=== PATIENT | female | born 1970 | race Caucasian/White ===

== ENCOUNTER 2023-11-21 08:10 | Outpatient (CLI) | payer OTHER ==
[2023-11-21 08:20] LABS: BASOPHILS % (AUTO) 0.3 %; EOSINOPHILS # (AUTO) 0.2 10^3/uL (0.0-0.7); HCT - HEMATOCRIT 32.8 % (37.0-47.0); HGB - HEMOGLOBIN 9.8 g/dL (12.0-16.0); LYMPHOCYTES # (AUTO) 1.4 10^3/uL (1.5-3.5); MEAN CORPUSCULAR HGB CONC 29.9 g/dL (32.0-36.0); MEAN CORPUSCULAR VOLUME 73.5 fL (81.0-99.0); MEAN PLATELET VOLUME 9.6 fL (7.9-10.8); MONOCYTES # (AUTO) 0.6 10^3/uL (0.0-1.0); NEUTROPHILS # (AUTO) 4.2 10^3/uL (1.5-6.6); NEUTROPHILS % (AUTO) 65.4 %; PLT - PLATELET COUNT 227 10^3/uL (130-450); RED BLOOD COUNT 4.46 10^6/uL (4.20-5.40); RED CELL DISTRIBUTION WIDTH 14.5 % (12.0-15.0); WHITE BLOOD COUNT 6.4 x10^3/uL (4.8-10.8)
[2023-11-21 08:35] LABS: ALBUMIN 4.4 g/dL (3.2-5.5); ALBUMIN/GLOBULIN RATIO 1.8 (1.0-2.2); ALKALINE PHOSPHATASE 48 IU/L (42-121); ALT ALANINE AMINOTRANSFERASE 9 IU/L (10-60); AST ASPARTATE AMINOTRANSFERASE 10 IU/L (10-42); BILIRUBIN,TOTAL 0.6 mg/dL (0.2-1.0); BUN - BLOOD UREA NITROGEN 21 mg/dL (6-20); CALCIUM 9.5 mg/dL (8.5-10.3); CARBON DIOXIDE - CO2 29 mmol/L (21-32); CHLORIDE 106 mmol/L (101-111); CHOL/HDL RATIO 3.8 (<4.4); CHOLESTEROL 151 mg/dL; CREATININE 0.6 mg/dL (0.6-1.3); GFR - MDRD 104 (>89); GLUCOSE 95 mg/dL (74-104); HDL CHOLESTEROL 40 mg/dL; LDL CHOLESTEROL,CALCULATED 88 mg/dL; LDL/HDL RATIO 2.2 (<4.4); POTASSIUM 4.5 mmol/L (3.5-4.5); SODIUM 138 mmol/L (135-145); TOTAL PROTEIN 6.9 g/dL (6.4-8.9); TRIGLYCERIDES 115 mg/dL; VLDL CHOLESTEROL 23 mg/dL
[2023-11-21 08:51] LABS: THYROID STIMULATING HORMONE 1.51 uIU/mL (0.34-5.60)
== END 2023-11-21 08:11 | disposition home or self-care (01) ==
LOC: LAB 08:10
PROVIDERS: ATTEND Nurse Practitioner Family
DX: G47.39 Other sleep apnea (principal); M17.0 Bilateral primary osteoarthritis of knee; E78.5 Hyperlipidemia, unspecified; E55.9 Vitamin D deficiency, unspecified; G47.00 Insomnia, unspecified
CPT/HCPCS: 36415; 80053; 80061; 82306; 83721; 84443; 85025

== ENCOUNTER 2024-01-19 15:56 | Outpatient (CLI) | payer OTHER ==
--- NOTE | 2024-01-19 16:27 | Sleep Patient Instructions ---
Sleep Center Visit Summary - Patient Visit Information Reason for Visit: Initial consultation - Patient Instructions Additional Instructions: You will continue with CPAP therapy with pressure set at 7-15 cmH2O. A supply prescription will be updated with your DME supplier. I have added an order to update your PAP machine. Please call the office to schedule a compliance follow up once you get your new device. Please follow up with the sleep care office one month after obtaining new device. - Clinic Information Contact: [facility] [address] [place] [address] [email or web address] T: [phone]
--- NOTE | 2024-01-19 16:32 | SLEEP CARE CONSULTATION ---
Information from patient questionnaire entered by Uli Real. I have reviewed and concur with the information entered by Uli Real. This document represents the service I personally performed and the decisions made by me, Keturah Irizarry ARNP. History of Present Illness Service Date and Time: 01/19/2024 1556 Reason for Visit: New patient, Previously diagnosed sleep apnea, sleep apnea on CPAP therapy Date of Onset: WHOLE LIFE Usual bedtime: 9934-8778 Time it takes to fall asleep: 10-20MINS Snores at night: Yes Observed to quit breathing while asleep: No Number of times waking at night: 3-4 Toss, Turn, or Twitch while sleeping: Yes Recalls having dreams: Yes Usually gets out of bed at: 0600 Feels refreshed in the morning: No Sleepy or fatigued during the day: Yes Ever fallen asleep while driving: No Takes day naps: No Year and Where: 2015 [facility] Additional HPI information: TRESSA COLE was previously diagnosed to have very severe, AHI 87.7, obstructive sleep apnea-hypopnea syndrome as seen in sleep study dated 04/08/2016 through [facility] in [place], [place] and comes in today for CPAP therapy. - Parasomnia Symptoms Ever been unable to move upon waking from sleep: No Walks in sleep: No Talks in sleep: No Ever acted out dreams in sleep: No Ever felt weak in the knees when startled or emotional: No Bothered by creepy, crawly, restless sensations in legs: No Problems with memory or concentration: Yes CPAP Compliance Data - Data Reviewed with Patient Average duration of nightly device use: 7 hours 54 minutes Compliance rate %: 100 (30/30 days used) Current pressure setting (cmH2O): 7-15 Humidity settin Heated hose settin Average residual AHI: 2 Central apnea: 0.1 Obstructive apnea: 0.2 Hypopnea: 1.7 Average large leak: 1 mins 26 secs Compliance data discussion: She has a Dreamstation that was re-certified and she says it was last replace about 5 years ago. She gets her supplies from [facility]. She says the humidifier is not working on the machine. She is using a full face mask, ResMed AirTouch F20. Subjective Patient concerns: reports: dry mouth, nose, throat, other (sore in nose that will bleed). denies: aerophagia, mask discomfort, air blowing in eyes, mask leak noise, condensation in mask/hose, nasal congestion, epistaxis Observed to snore while using device: No Current pressure setting perceived as: comfortable On therapy, patient: reports: sleeping better, awakening more refreshed, being more awake and alert during the day, more rested overall. denies: drowsiness while driving Initial [place] Sleepiness Scale score: 3 (01/19/24) Past Medical History Past Medical History: reports: Arthritis Social History The patient's occupation is a SE. Patient is and lives in . Have you smoked in the past 12 months: No Alcohol use: No Caffeine use: Yes Caffeine amount and frequency: 1 cup 1-2xday Family History Family history of sleep disordered breathing: Yes Family Hx Sleep Apnea: Mother: Snoring, Father: Sleep apnea - Treated, Sibling: Sleep apnea - Treated Allergies and Home Medications Known drug allergies: No Drug allergies reviewed: Yes Home medication list reviewed: Yes (as listed) Allergy and home medication list: Allergies No Known Drug Allergies Allergy (Verified 01/19/24 15:58) Home Medications Medication Instructions Recorded Confirmed Last Taken Type Cetirizine [ZyrTEC] See Rx Instructions .ROUTE .COMPLEX 01/19/24 01/19/24 Unknown History Cholecalciferol (Vitamin D3) See Rx Instructions .ROUTE .COMPLEX 01/19/24 01/19/24 Unknown History [Vitamin D3] Naproxen See Rx Instructions .ROUTE .COMPLEX 01/19/24 01/19/24 Unknown History Semaglutide [Wegovy] See Rx Instructions .ROUTE .COMPLEX 01/19/24 01/19/24 Unknown History traZODone [Desyrel] See Rx Instructions .ROUTE .COMPLEX 01/19/24 01/19/24 Unknown History Review of Systems Weight loss over past 5 years: 57 Cardiovascular: denies: high blood pressure Gastrointestinal: reports: nausea Urinary: reports: frequency Psychiatric: denies: anxiety, depression Ear/Nose/Throat: reports: dry mouth/throat. denies: tonsillectomy Endocrine: reports: too hot or cold Musculoskeletal: reports: joint pain, neck pain, back pain, joint swelling, muscle pain or cramping, mobility problems Physical Exam Vital signs obtained and entered by: ULI Vega MA Blood Pressure: 114/79 (LEFT ARM) Cuff size: regular Heart Rate: 88 O2 Saturation: 99 Height: 5 ft 4.25 in Weight: 150 lb 3.2 oz Body Mass Index: 25.5 BMI Classification: Overweight Neck circumference: 14.5 Heart: regular rate and rhythm Lungs: clear bilaterally Impression and Plan 1. Obstructive Sleep Apnea-Hypopnea Syndrome, very severe, with good treatment compliance and good apnea control. On CPAP therapy, the patient has better sleep quality and is more rested overall. She has a Dreamstation that she thinks was last updated in 2019. She says the humidifier is not working properly. She always has a dry mouth. The patients CPAP is over 5 years old and of reasonable use. Thus, the CPAP will be updated. The new CPAPs also have a better humidity system which could assist control of patients dryness symptoms. A DWO prescription will be made. Compliance guidelines for new device and follow up discussed. Patient's apnea severity and rationale for treatment to reduce apnea, improve sleep quality and reduce cardiovascular and cerebrovascular events was reviewed. 2. Overweight, minimal. Currently patients BMI is 25.5. She has lost weight in the last 5 years. Obesity increases the risk of apnea, CPAP pressure requirements and overall health risks especially cardiovascular and diabetes. Thus patient is advised to maintain a healthy weight. * Continue auto CPAP pressure at 7-15 cmH2O * Update machine, humidifier not working properly * Update supply prescription * Notify me if snoring with mask or feeling that the pressure is too much or too little * Maintain a healthy weight * Call this office if any problems using CPAP * Return for follow up one month after obtaining new CPAP, or sooner if concerns arise Continue with device pressure at (cmH2O): 7-15 Counseling Topics: Spare mask, Weight control Prescriptions: Auto CPAP, Device supplies Follow up with Sleep Care in: other (compliance followup) Visit Type: In Office Time Spent with Patient (minutes): 30 Provider Statement: I spent 100% of the Face to Face Visit with the patient with greater than 50% spent counseling the patient and coordination of care.
[2024-01-19 16:35] VITALS: BP 114/79; O2SAT 99
== END 2024-01-19 15:57 | disposition home or self-care (01) ==
LOC: SC 15:56
PROVIDERS: ATTEND Nurse Practitioner Family
DX: G47.33 Obstructive sleep apnea (adult) (pediatric) (principal); E66.3 Overweight; Z68.25 Body mass index [BMI] 25.0-25.9, adult
CPT/HCPCS: 99203; 99212